=== PATIENT | female | born 1955 | race Caucasian/White ===

== ENCOUNTER 2019-09-26 10:21 | Day surgery (SDC) | payer MEDICARE, BC ==
--- NOTE | 2019-09-26 08:23 | HP ---
DATE OF SURGERY: 09/26/2019 HISTORY OF PRESENT ILLNESS: The patient is a 64 year-old with increasingly painful, enlarging cysts on her right hand and wrist area, felt like she had dorsal ganglion wrist cyst symptomatic. It was felt she would benefit from excision. Additionally, she has four enlarging scalp nodules or cysts that she desires excision of as well. PAST MEDICAL HISTORY: Hypertension. Thyroid disease. She has history of thyroiditis in the past. PAST SURGICAL HISTORY: Hysterectomy in the past. Cholecystectomy. Tonsillectomy. ERCP in the past. Right breast biopsy in the past. MEDICATIONS: Levothyroxine. Metoprolol. Aleve PRN. She had been on some Telmisartan as well. ALLERGIES: NITROGLYCERIN DROPS HER BLOOD PRESSURE. CYTOMEL CAUSED HER HEART TO RACE. FAMILY HISTORY: Hypertension. Breast cancer. SOCIAL HISTORY: No smoking or alcohol abuse. REVIEW OF SYSTEMS: Fourteen systems reviewed per admission assessment. No chest pain or palpitations other systems negative or noncontributory as above and per preadmission questionnaire. PHYSICAL EXAMINATION: GENERAL: No acute distress. HEENT: Sclerae nonicteric. NECK: No JVD. CHEST: Equal excursion, nonlabored breathing. CVS: Regular rate and rhythm. ABDOMEN: Soft. EXTREMITIES: No significant edema. NEURO: Alert, oriented, moving extremities symmetrically. No gross motor deficits noted. IMPRESSION: Enlarging, symptomatic dorsal wrist ganglion cyst. I feel she would benefit from excisional biopsy. General risk of bleeding or infection, risk of aches or pains, arthritis, risk of cyst recurrence possibly up to 10%, risk of infection, risk of aches, pains, burning or numbness, risk of sensory or nerve irritation or scar formation as well as risk of scalp lesion or cyst, general risk of bleeding or infection, risk of wound infection, possibility of developing other cysts or nodules adjacent to or elsewhere on her scalp or body. General risk of anesthesia, deep venous thrombosis, pulmonary embolism, pneumonia but not limited to. She understands and agrees to the planned procedure, will proceed with excisional biopsy of dorsal right wrist ganglion cyst as well as enlarging scalp cyst or lesion as an outpatient.
[~2019-09-26 10:21] MED LIST: DIPRIVAN 200 MG/20 ML IV ONE; Lactated Ringers 1,000 ML IV ONE; Quelicin Fliptop 200 MG/10 ML ONE; SUBLIMAZE 100 MCG/2 ML ONE; Sensorcaine 0.25% 10 ML ONE; Zemuron 100 MG/10 ML ONE
[2019-09-26] MEDS: Lactated Ringers 1,000 ML IV SCH (10:26)
[2019-09-26] MEDS ORDERED: Sensorcaine 0.25% 10 ML ONE (10:51)
[2019-09-26] MEDS ORDERED: KEFZOL 1 GM ONE (11:48)
[2019-09-26] MEDS ORDERED: Ephedrine Sulfate 50 MG/ML ONE (12:20)
[2019-09-26] MEDS ORDERED: SUBLIMAZE 100 MCG/2 ML ONE (13:49)
[2019-09-26] MEDS ORDERED: Lactated Ringers 1,000 ML IV ONE (13:53)
[2019-09-26 15:14] VITALS: BP 133/63; PULSE 73; O2SAT 94
--- NOTE | 2019-09-26 15:39 | OP ---
SURGERY DATE/TIME: 09/26/2019 1137 PREOPERATIVE DIAGNOSES: 1) Symptomatic painful right wrist cyst. 2) Enlarging scalp cyst or nodule. POSTOPERATIVE DIAGNOSES: 1) Symptomatic painful right wrist cyst. 2) Enlarging scalp cyst or nodule. PROCEDURES: 1) Excisional biopsy right wrist cyst. 2) Excisional biopsy scalp cyst left anterior approximately 2 cm. 3) Right anterior approximately 1.5 cm with margins. 4) Right posterior approximately 1.2 cm. 5) Left posterior approximately 1.3 cm. SURGEON: Dr. Alexis Hendrix. ANESTHESIA: General. ESTIMATED BLOOD LOSS: Minimal. INDICATIONS: As noted above. Risks and benefits explained in detail and not limited to and consent obtained. The sites confirmed with the patient in the preoperative holding area. She did not want any significant hair trimmed. She accepted the risk of wound infection or ingrown hairs. The wrist site marked and confirmed. DESCRIPTION OF PROCEDURE AND FINDINGS: She is taken to the operating room. General anesthesia induced. Wrist and scalp prepped and draped in sterile fashion. After official time out and no disagreement with planned procedure, the Esmarch was used to upper extremity rolling up to the area of the tourniquet. The tourniquet was then inflated to 250. The wrist block then removed. A transverse incision made. There was a little bit of leak in the tourniquet. A little bit more ooze than usual but dissection was carried down directly on this gelatinous cyst. It was actually following three of the different tendons. The area was thin walled. Dissected it back to the carpal bones and it basically disintegrated given its thin walled nature. Small pieces were sent off for pathology. It was tracked down to where it appeared to be arising from the carpal bones. Some very low setting pin point cauterization area of origin right on the carpal bones appeared to be the origin of the cyst itself. Again, this is more of a generalized larger cyst. I felt she was a little bit high risk of recurrence. Whether this is more of a rheumatoid type process rather than a simple ganglion was unclear. The tendon had been carefully protected. At this point the tourniquet was let down to 25 to 26 minutes. She did have a very small tourniquet as the tube was leaking and did not come all the way up to 250. The tourniquet had been released a few seconds and venous ooze was noted and this was controlled with some pin point cautery as necessary at a very low setting. Good hemostasis noted. There was no visible cyst material remaining and it had basically disintegrated. There was no visible cyst material to excise at this point. Copious amount of irrigation irrigating clear. Appeared to have good hemostasis. Skin closed with 4-0 Vicryl in running subcuticular fashion. Steri-Strips and sterile dressing applied. She was given a splint to keep her hand in functional position over the next week. 0.25% Marcaine local had been injected along the skin incision. The patient tolerated the procedure well. There were no immediate complications of this procedure. Again, a very generally diffuse thin wall rather than a small isolated ganglion cyst. At this point the patient was repositioned. Originally the staff had planned to put her in lateral position but the cyst could not be easily visualized in this position and it was elected to switch her to prone position appropriate padding per anesthesia and OR staff. Once she is in this position the area prepped and draped in usual sterile fashion. Again, she did not agree to any significant hair trimming. Discussed the risk of ingrown hair perioperatively. Starting first with the left anterior including small sliver of skin over the top dissection carried down circumferentially around this. This cyst actually angled posteriorly and was about 2 cm in size length-rangel. It is carefully dissected free and passed off. There was no residual cyst material in the wound. Hemostasis controlled with pin point cautery. Good hemostasis noted. The wound is then closed with 3-0 Prolene. Good hemostasis noted. Next, the right anterior and a small sliver of skin over the top. Dissection carried down this had a little more reaction around but slowly and carefully dissected free and ended up being 1.5 cm with this reaction posteriorly, passed off. There did not appear to be any residual cyst material in the wound. Good hemostasis noted. The wound is closed with 3-0 Prolene interrupted fashion. Good hemostasis noted. Attention was then turned to the more posterior cyst towards the upper portion of the neck. First the right posterior dissection carried over top dissecting down and circumferentially around, this is more like 1.2 cm with reaction around it and it is passed off for pathology. Brief bursts of cautery controlled hemostasis. It was then closed with interrupted 3-0 Prolene. The staff removed all visible hair from the wound itself to avoid risk of entrapment. Otherwise attention was then turned to the left posterior. Dissection carried with small sliver of skin. Dissection carried down circumferentially around this and this is about 1.3 to 1.4 cm in size with reaction around it. Dissected off the underlying tissue and passed off. There was no residual cyst material in the wound. Small oozing vessel on the base controlled pin point cautery. Good hemostasis noted. It was then closed with interrupted 2-0 Prolene. Good hemostasis noted. She had sterile dressing, antibiotic ointment and head wrap at the end. There were no immediate complications. Finding discussed with the out in the waiting area including the fact that she is at little bit higher risk of recurrence given the diffuse nature but lessen the chance as much as possible at this time. She was transferred to recovery room in stable condition.
== END 2019-09-26 15:20 | disposition home or self-care (01) ==
LOC: SDC 10:21 → EDSTATUS 11:58 → SDC 15:20
PROVIDERS: ATTEND Surgery
DX: L72.12 Trichodermal cyst (principal); M67.431 Ganglion, right wrist
CPT/HCPCS: A4570; J0330; J0690; J2704; J3010